=== PATIENT | male | born 1950 ===

== ENCOUNTER 2017-08-25 05:03 | Day surgery (SDC) | payer OTHER ==
[~2017-08-25] VITALS: Ht 195.6 cm; Wt 105.7 kg
[~2017-08-25 05:03] MED LIST: ASPI81TA94 PO; ATOR20TA65 PO; CARB-94 PO; FLUO-177 PO; MULT-1335 PO; NAPR220C12 PO; OMEG-23 PO; SAW/1TAB2 PO
[2017-08-25 10:55] LABS: PLATELET COUNT, AUTOMATED 201 K/uL (150-450)
[2017-08-25 11:00] VITALS: BP 134/86
[2017-08-25] MEDS ORDERED: NORMOSOL R SOLN(*) 1000 ML BAG 1,000 ML IV PRN ×2 (11:40→14:30)
[2017-08-25] MEDS ORDERED: ceFAZolin(*) 2GM/D5W 50ML 50 ML IVPB ONE (11:40)
[2017-08-25] MEDS ORDERED: MIDAZOLAM 2 MG/2 ML VIAL IVP PRN ×2 (11:40→14:30)
--- NOTE | 2017-08-25 13:49 | RADIOLOGY IMAGING REPORT ---
FACILITY: [facility] - [place] PATIENT NAME: Ezequiel Blood : 1950 MR: [id number] V: [id number] EXAM DATE: ORDERING PHYSICIAN: DARINEL GIANG TECHNOLOGIST: Location: [facility] - [place] Patient: Ezequiel Blood : 1950 Visit/Account:[id number] Date of Sevice: 08/24/2017 Exam type: KUB SINGLE VIEW ABDOMEN History: Preop Comparison: Nephrotomogram performed today. Findings: There is a nonspecific bowel gas pattern present. No definite calcifications project over the renal shadows. There are small calcination occasions within the pelvis. This could represent phleboliths although distal ureteral calculi not totally excluded. There are moderate spondylotic changes lumbar spine. IMPRESSION: 1. As above Report Dictated By: Sheri Gray MD at 08/25/2017 1:43 PM Report E-Signed By: Sheri Gray MD at 08/25/2017 1:45 PM WSN:[email or web address]
--- NOTE | 2017-08-25 13:50 | RADIOLOGY IMAGING REPORT ---
FACILITY: [facility] - [place] PATIENT NAME: Ezequiel Blood : 1950 MR: [id number] V: [id number] EXAM DATE: ORDERING PHYSICIAN: DARINEL GIANG TECHNOLOGIST: Location: [facility] Patient: Ezequiel Blood : 1950 Visit/Account:[id number] Date of Sevice: 08/24/2017 Exam type: TOMOGRAPHY History: PREOP ORDER Comparison: None. Findings: No definite calcifications are seen projecting over the renal shadows IMPRESSION: 1. No definite calcination occasions are seen projecting over the renal shadows Report Dictated By: Sheri Gray MD at 08/25/2017 1:45 PM Report E-Signed By: Sheri Gray MD at 08/25/2017 1:45 PM WSN:[email or web address]
[2017-08-25] MEDS ORDERED: IOPAMIDOL-200 50 ML VIAL IS ONE (14:20)
[2017-08-25] MEDS ORDERED: LIDOCAINE/SOD BICARB 8.4% SYR ID ONE (14:30)
[2017-08-25] MEDS ORDERED: FAMOTIDINE 20 MG TAB PO ONE (14:30)
[2017-08-25] MEDS ORDERED: ONDANSETRON 4 MG/2 ML VIAL ONE (15:30)
[2017-08-25] MEDS ORDERED: DEXAMETHASONE SOD PHOS 10MG/ML ONE (15:30)
[2017-08-25] MEDS ORDERED: LIDOCAINE 4% SOLN 50 ML BTL TP ONE (16:10)
--- NOTE | 2017-08-25 17:07 | RADIOLOGY IMAGING REPORT ---
FACILITY: [facility] - [place] PATIENT NAME: Ezequiel Blood : 1950 MR: [id number] V: [id number] EXAM DATE: ORDERING PHYSICIAN: DARINEL GIANG TECHNOLOGIST: Location: [facility] Patient: Ezequiel Blood : 1950 Visit/Account:[id number] Date of Sevice: 08/25/2017 Exam type: RETROGRADE PYELOGRAM History: Hematuria and kidney stones Comparison: Tomograms performed earlier in the day Findings: There is a faintly opaque ovoid density projecting to the left of the L3 vertebral body. This may re present a ureteral calculus. There was suggestion of a filling defect in this location on the postco ntrast images performed following contrast injection into the left ureter. The final images demonstr ate a left ureteral stent. The ovoid density appears to project immediately adjacent to the mid port ion of the left stent. The fluoroscopy time was 32 seconds. The fluoroscopy dose was 23.53 mGy IMPRESSION: 1. As above Report Dictated By: Sheri Gray MD at 08/25/2017 4:58 PM Report E-Signed By: Sheri Gray MD at 08/25/2017 5:03 PM WSN:[email or web address]
[2017-08-25] MEDS ORDERED: FAMO20TA28 PO (17:43)
[2017-08-25] MEDS ORDERED: PHEN200T32 PO (17:43)
[2017-08-25] MEDS ORDERED: IBUP-1671 PO (17:44)
[2017-08-25] MEDS ORDERED: CIPR-214 PO (17:45)
[2017-08-25] MEDS ORDERED: HYDR-389 PO (17:46)
[2017-08-25] MEDS ORDERED: KETOROLAC 30 MG/ML VIAL ONE (17:53)
[2017-08-25 18:08] VITALS: BP 124/92
[2017-08-25 18:44] VITALS: BP 131/73
[2017-08-25 18:47] VITALS: BP 124/88
[2017-08-25 18:50] VITALS: BP 123/75
[2017-08-25] MEDS ORDERED: APAP/HYDROCODONE 325/7.5 TAB ONE (18:54)
--- NOTE | 2017-08-26 15:28 | OPERATIVE REPORT 1 ---
EVENT DATE: August 25, 2017 SURGEON: Dougie Chappell MD ANESTHESIOLOGIST: Dougie Waterman MD ANESTHESIA: General. PREOPERATIVE DIAGNOSES 1. Left ureterolithiasis. 2. Left renal lithiasis. POSTOPERATIVE DIAGNOSIS 1. Left ureterolithiasis. 2. Left renal lithiasis. PROCEDURES PERFORMED 1. Cystourethroscopy. 2. Left renal pyelogram. 3. Manipulation of left ureteral stone. 4. Left ureteral stent placement. DESCRIPTION OF PROCEDURE Under general anesthetic, the patient was prepped and draped in the extended lithotomy position. The 21 panendoscope was admitted through the urethra into the bladder. The urethra was normal. 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 The bladder showed 4+ trabeculation. Trigone and ureteral orifices were normal. No other demonstrable lesions. Left ureteral pyelograms were obtained and appeared to be grossly within normal limits except for at approximately the L5 level there was some mild dilation. I could not definitely say I could see a filling defect in that area. Multiple films confirmed slow drainage from that area. The access catheter and guidewire were subsequently placed after placing 4% lidocaine jelly up the left ureter. After significant manipulation, I attempted to place a 6-[place] x 28 cm Percuflex Plus and then subsequently followed by 4.8 x 28 Percuflex Plus. The left ureteral stent was positioned. X-rays confirmed satisfactory positioning. Approximately 45 minutes or more was used to manipulate and place the ureteral stent. There was good efflux of old, brownish, rust-colored urine. X-ray confirmed a full curl in the kidney and the bladder. The bladder was drained, and the scope was withdrawn. The patient tolerated the procedure satisfactorily and returned to the recovery room in satisfactory condition. This is a 57-year-old white male referred with the complaint of an obstructed left ureter at the L5 level with approximately a 5 mm stone. There was also an 8 stone in the left kidney lower pole area. Options were discussed with the patient. His problem had been going on for approximately two months. He deferred for personal reasons treatment earlier. He was advised as to concerns. He subsequently followed up, and he had evaluation and therapy. See operative note for details. The patient will be discharged home when alert and functional. He is to force fluids, 12 glasses of water per day. Activities are as tolerated. He is to strain all of his urine. He was sent home with strainers. Plan followup in approximately one week or as desired by the patient. The patient will be discharged home on Cipro, Pepcid, Motrin, Pyridium, and Vicodin therapy. He is to continue his usual medications. We will either plan followup in the office or here in the hospital for followup , further evaluation, and treatment. MORRIS
== END 2017-08-25 18:08 | disposition home or self-care (01) ==
LOC: OR 05:03
DX: N20.2 Calculus of kidney with calculus of ureter (principal); E78.5 Hyperlipidemia, unspecified; K21.9 Gastro-esophageal reflux disease without esophagitis; G20 Parkinson's disease; F32.9 Major depressive disorder, single episode, unspecified
CPT/HCPCS: 36415; 52330; 74000; 74420; 76100; 81001; 85025; 85610; 87088; C1758; C1769; C2617; J1100; J1885; J2405; Q9966; J0690

== ENCOUNTER 2017-09-01 02:34 | Observation (INO) | payer OTHER ==
[~2017-09-01] VITALS: Ht 195.6 cm; Wt 111.6 kg
[2017-09-01] VITALS (8 sets, daily range): BP systolic 121–165; BP diastolic 72–101
[~2017-09-01 02:34] MED LIST changes: +CIPR-214 PO; +FAMO20TA28 PO; +HYDR-389 PO; +IBUP-1671 PO; +PHEN200T32 PO
[2017-09-01] MEDS ORDERED: IOPAMIDOL-200 50 ML VIAL IS ONE (08:07)
--- NOTE | 2017-09-01 11:02 | RADIOLOGY IMAGING REPORT ---
FACILITY: [facility] [place] PATIENT NAME: Ezequiel Blood : 1950 MR: [id number] V: [id number] EXAM DATE: ORDERING PHYSICIAN: DARINEL GIANG TECHNOLOGIST: Location: [facility] - [place] Patient: Ezequiel Blood : 1950 Visit/Account:[id number] Date of Sevice: 08/31/2017 KUB SINGLE VIEW ABDOMEN HISTORY: Hematuria, preop COMPARISON: Tomogram from September 01. FINDINGS: There is a double-J left ureteral stent noted. A linear, 8 mm calcification is noted along the midpo rtion of the left ureter, to the left of the L4 vertebra. IMPRESSION: Double-J left ureteral stent with left urolithiasis. Report Dictated By: Dieter Adan MD at 09/01/2017 10:56 AM Report E-Signed By: Dieter Adan MD at 09/01/2017 10:58 AM WSN:[email or web address]
[2017-09-01] MEDS ORDERED: NORMOSOL R SOLN(*) 1000 ML BAG 1,000 ML IV PRN (12:30)
[2017-09-01] MEDS ORDERED: ceFAZolin(*) 2GM/D5W 50ML 50 ML IVPB ONE (12:30)
[2017-09-01] MEDS ORDERED: FAMOTIDINE 20 MG TAB PO ONE (12:30)
[2017-09-01] MEDS ORDERED: MIDAZOLAM 2 MG/2 ML VIAL IVP PRN (12:30)
[2017-09-01] MEDS ORDERED: LIDOCAINE/SOD BICARB 8.4% SYR ID ONE (12:30)
[2017-09-01] MEDS ORDERED: ONDANSETRON 4 MG/2 ML VIAL ONE (13:41)
[2017-09-01] MEDS ORDERED: LIDOCAINE MPF 1% 5 ML VIAL ONE (13:41)
[2017-09-01] MEDS ORDERED: PROPOFOL EMUL(*) 10MG/ML 20 ML 20 ML ONE (13:41)
[2017-09-01] MEDS ORDERED: DEXAMETHASONE SOD 4 MG/ML VIAL ONE (13:41)
[2017-09-01] MEDS ORDERED: fentaNYL CITR 100 MCG/2 ML AMP ONE ×3 (13:44→19:09)
[2017-09-01] MEDS ORDERED: GENTAMICIN 80 MG/2 ML VIAL ONE (15:05)
[2017-09-01] MEDS ORDERED: PHENYLEPHRINE/NS/PF 0.4MG/10ML ONE (15:19)
--- NOTE | 2017-09-01 15:55 | RADIOLOGY IMAGING REPORT ---
FACILITY: [facility] PATIENT NAME: Ezequiel Blood : 1950 MR: [id number] V: [id number] EXAM DATE: ORDERING PHYSICIAN: DARINEL GIANG TECHNOLOGIST: Location: [facility] [place] Patient: Ezequiel Blood : 1950 Visit/Account:[id number] Date of Sevice: 08/31/2017 Abdomen tomographic images HISTORY: Hematuria, preoperative Findings: Three acquisitions obtained. No apparent renal calculi seen on the images obtained. Partial visuali zation of an apparent left ureteral stent is not well visualized secondary to motion. IMPRESSION: Abdomen tomographic images, see comments above. Report Dictated By: Robin Ulloa MD at 09/01/2017 3:48 PM Report E-Signed By: Robin Ulloa MD at 09/01/2017 3:50 PM WSN:[email or web address]
[2017-09-01] MEDS ORDERED: NS 0.9% 3000 ML IRRIGATION BAG IR ONE (16:10)
--- NOTE | 2017-09-01 16:56 | RADIOLOGY IMAGING REPORT ---
FACILITY: [facility] PATIENT NAME: Ezequiel Blood : 1950 MR: [id number] V: [id number] EXAM DATE: ORDERING PHYSICIAN: DARINEL GIANG TECHNOLOGIST: Location: [facility] [place] Patient: Ezequiel Blood : 1950 Visit/Account:[id number] Date of Sevice: 09/01/2017 Exam type: C-ARM FLUORO 1 HR History: Hematuria and kidney stones Comparison: Nephrotomograms August 31, 2017. Findings: Nine intraoperative spot views of the abdomen are similar for interpretation. The fluoroscopy dose w as not documented. Initial image demonstrated a left ureteral stent. Subsequent images demonstrated placement of a guidewire through the stent and a ureteral catheter. IMPRESSION: 1. As above Report Dictated By: Sheri Gray MD at 09/01/2017 4:50 PM Report E-Signed By: Sheri Gray MD at 09/01/2017 4:53 PM WSN:[email or web address]
[2017-09-01] MEDS ORDERED: HYDR-4308 PO (17:57)
[2017-09-01] MEDS ORDERED: IBUP800T37 PO (17:58)
[2017-09-01] MEDS ORDERED: FAMO20TA28 PO (17:59)
[2017-09-01] MEDS ORDERED: APAP/HYDROCODONE 325/7.5 TAB ONE (18:38)
[2017-09-01] MEDS ORDERED: ONDANSETRON 4 MG/2 ML VIAL IVP PRN (19:25)
[2017-09-01] MEDS ORDERED: LR(*) 1000 ML BAG 1,000 ML IV PRN (19:25)
[2017-09-01] MEDS ORDERED: HYDROmorphone PCA 6 MG/30 ML IV PRN (19:30)
[2017-09-01] MEDS ORDERED: NALOXONE HCL 0.4 MG/ML VIAL IVP PRN (19:30)
[2017-09-01] MEDS: CARBIDOPA/LEVODOPA 25/100 TAB PO SCH (21:20)
[2017-09-01] MEDS: ceFAZolin 1 GM VIAL IVPB SCH (21:21)
[2017-09-01] MEDS: GENTAMICIN/NS 80 MG/100 ML PB 100 ML IVPB SCH (23:13)
[2017-09-02] VITALS: BP 132/82
[2017-09-02 01:00] VITALS: BP 115/79
[2017-09-02 02:00] VITALS: BP 123/82
[2017-09-02 03:27] VITALS: BP 107/74
[2017-09-02] MEDS: ceFAZolin 1 GM VIAL IVPB SCH (03:31)
[2017-09-02] MEDS: GENTAMICIN/NS 80 MG/100 ML PB 100 ML IVPB SCH (05:57)
[2017-09-02 07:55] VITALS: BP 122/72
[2017-09-02] MEDS: CARBIDOPA/LEVODOPA 25/100 TAB PO SCH (09:00)
[2017-09-02] MEDS ORDERED: ceFAZolin 1 GM VIAL IVP SCH (09:00)
--- NOTE | 2017-09-02 16:58 | OPERATIVE REPORT 1 ---
EVENT DATE: 09/01/2017 SURGEON: Dougie Chappell MD ANESTHESIOLOGIST: Juan Salas MD ANESTHESIA: General anesthetic. PREOPERATIVE DIAGNOSES 1. Left ureterolithiasis. 2. Left renal lithiasis. POSTOPERATIVE DIAGNOSES 1. Left ureterolithiasis. 2. Left renal lithiasis. PROCEDURES PERFORMED 1. Cystourethroscopy. 2. Left ureteral stent removal. 3. Left ureterorenoscopy. 4. Left laser lithotripsy. 5. Extraction of multiple stones from the left ureter. 6. Left extracorporeal shock wave lithotripsy of two stones. DESCRIPTION OF PROCEDURE Under general anesthetic, the patient was prepped and draped in the extended lithotomy position. The 21 panendoscope was admitted through the urethra into the bladder. No stones were visible in the bladder. The left ureteral stent was removed. The left ureterorenoscope was passed up the left ureter to approximately the mid ureter. A stone was encountered, approximately 1 cm in its greatest diameter. The stone was laser lithotripsied with a 365 unit laser probe. The stone was satisfactorily disintegrated. The stones were extracted. The left external stent was placed up the left collecting system. X-ray confirmed satisfactory position. The patient was transferred to the stone treatment unit where after localization , the stone in the upper mid area of the left kidney was treated with a total of , I believe, 2000 shocks, and then the inferior pole segment was treated with a total of 1000 shocks. The patient tolerated the procedures satisfactorily. The external stent and [place] were removed. The patient returned to the recovery room in satisfactory condition. This is a 67-year-old white male in followup for his left ureterolithiasis and left renal lithiasis. Options were discussed with the patient pretreatment. He is agreeable to further evaluation and therapy. See operative note for details. The patient will be ready for discharge home when alert and responsive if all is going well. He is to force fluids, 2 L per day. Activities are as tolerated. He is to strain all of his urine. He is sent home with strainers. He is discharged on his usual medications, Cipro, Pepcid, Pyridium, Motrin, and [place] therapy. He is to continue his usual medications. He is to percuss his left kidney frequently to facilitate passage of any stone particles. We plan follow[facility] at the [facility] probably on September 09, 2017. [facility]
== END 2017-09-02 11:26 | disposition home or self-care (01) ==
LOC: OR 02:34 → OBSVTOIN 19:55 → INTOOBSV 19:55 → MED 19:55
DX: N20.2 Calculus of kidney with calculus of ureter (principal)
CPT/HCPCS: 50590; 52352; 52353; 74000; 76000; 76100; C1758; C1769; C1894; G0378; J0690; J1100; J1170; J1580; J2001; J2250; J2370; J2405; J2704; J3010; J7120; Q9966